=== PATIENT | male | born 1995 | race Caucasian/White ===

== ENCOUNTER 2020-05-24 17:09 | Emergency (ER) | payer OTHER ==
[2020-05-24 17:16] VITALS: BP 122/64; PULSE 80; RESP 18; TEMP 98.2
[2020-05-24] MEDS ORDERED: DIPH,PERTUS(ACELL)TETVAC-LF 0.5 ML VIAL IM ONE (17:30)
[2020-05-24] MEDS ORDERED: LIDOCAINE 1% INJ 10MG/ML (20 ML MDV) SQ ONE (17:30)
--- NOTE | 2020-05-24 18:03 | ED ---
Wound/Laceration HPI - General Chief Complaint: Wound/Laceration Stated Complaint: IHS-hand lac Time Seen by Provider: 05/24/20 17:23 Source: patient Mode of arrival: ambulatory Limitations: no limitations - History of Present Illness Initial Comments: 24 yo male presenting today for cc of right hand laceration. patient states that he was bending a evelyn when it accidentally rammed into his right hand causing laceration. Patient is unsure of his last tetanus. thought it might need suture and presented to the ER for evaluation patient denies loss of ROM of digits, numbness/tingling loss of sensation. Patient denies noting exposure of underlying structure or small particles in the wound. Patient has no additional complaints. Upon arrival patient appears well bleeding controlled. - Related Data Previous Rx's Medication Instructions Recorded Cephalexin [Keflex] 500 mg PO Q12HR 3 Days #6 cap 05/24/20 Allergies Allergy/AdvReac Type Severity Reaction Status Date / Time ibuprofen [From Motrin] Allergy Swelling Verified 05/24/20 17:13 Review of Systems ROS Statement: Those systems with pertinent positive or pertinent negative responses have been documented in the HPI. ROS Other: All systems not noted in ROS Statement are negative. Past Medical History Past Medical History: No Reported History History of Any Multi-Drug Resistant Organisms: None Reported Past Surgical History: No Surgical Hx Reported Past Psychological History: No Psychological Hx Reported Smoking Status: Never smoker Past Alcohol Use History: Occasional Past Drug Use History: None Reported General Exam - General Exam Comments Initial Comments: General: The patient is awake and alert, in no distress, and does not appear acutely ill. Eye: Pupils are equal, round and reactive to light, extra-ocular movements are intact. No nystagmus. There is normal conjunctiva bilaterally. No signs of icterus. Musculoskeletal: Normal ROM, no tenderness. Strength 5/5 at the MCP DIP and PIP joints of all five digits of the hands b/l. laceration deformity of right hand near right thumb 4 cm on the dorsal aspect . Sensation intact. [place] oulses equal bilaterally 2+. capillary refill < 3 seconds. Neurological: A&O x 3. CN II-XII intact grossly, There are no obvious motor or sensory deficits. Coordination appears grossly intact. Speech is normal. Skin: Skin is warm and dry and no rashes or lesions are noted. Psychiatric: Cooperative, appropriate mood & affect, normal judgment. Limitations: no limitations Course Vital Signs 05/24/20 17:13 Temperature 98.2 F Pulse Rate 80 Respiratory 18 Rate Blood Pressure 122/64 O2 Sat by Pulse 98 Oximetry Procedures - Laceration Laceration #1 Consent Obtained: verbal consent Indication: laceration Site: hand (right thumb) Size (cm): 4 Description: linear Depth: simple, single layer Anesthetic Used: lidocaine 1% Anesthesia Technique: local infiltration Amount (mls): 1 Pre-repair: wound explored, irrigated extensively, deep structures intact Type of Sutures: nylon Size of Sutures: 5-0 Number of Sutures: 5 Technique: simple, interrupted Patient Tolerated Procedure: well, no complications Medical Decision Making - Medical Decision Making 24-year-old male presented for chief complaint of right hand laceration. Laceration irrigated and cleansed with iodine. Edges approximate well there is no exposure of underlying structures. No indication of tendon injury or tendon exposure. Patient applied the procedure well. Patient was educated on risks of hand infections, return parameteres and importance of timely removal patient is agreeable to care plan and discharge at this time. Disposition Clinical Impression: Thumb laceration, Laceration of right thumb Disposition: HOME SELF-CARE Condition: Good Instructions (If sedation given, give patient instructions): Care For Your Stitches (ED), Laceration (ED) Additional Instructions: Please use medication as discussed. Please follow-up with family doctor in the next 2 days, return to ER for suture removal in 7-10 days Please return to emergency room if the symptoms increase or worsen or for any other concerns. Prescriptions: Cephalexin [Keflex] 500 mg PO Q12HR 3 Days #6 cap Is patient prescribed a controlled substance at d/c from ED?: No Referrals: None,Stated [Primary Care Provider] - 1-2 days Time of Disposition: 18:03
== END 2020-05-24 18:14 | disposition home or self-care (01) ==
LOC: EC 17:09
DX: S61.011A Laceration without foreign body of right thumb without damage to nail, initial encounter (principal); Z88.6 Allergy status to analgesic agent; W22.8XXA Striking against or struck by other objects, initial encounter
CPT/HCPCS: 90715; 99282; 90471; 12002; J2001

== ENCOUNTER → 2021-04-12 | Outpatient (CLI) | payer BC ==
[2021-04-12 16:34] LABS: T4, Free (Free Thyroxine) 1.2 ng/dL (0.80-1.80)
== END | disposition home or self-care (01) ==
LOC: LABWHC1 08:52
PROVIDERS: ATTEND Nurse Practitioner Acute Care
DX: E03.9 Hypothyroidism, unspecified (principal)
CPT/HCPCS: 36415; 84439; 84443; 84481

== ENCOUNTER → 2021-08-08 | Outpatient (CLI) | payer BC ==
[2021-08-08 23:07] LABS: Basophils # (A) 0 X 10*3/uL (0.00-0.10); Basophils % (A) 0 %; Eosinophils # (A) 0.18 X 10*3/uL (0.04-0.35); Eosinophils % (A) 2.2 %; HCT 44.6 % (39.6-50.0); HGB 14.9 g/dL (13.0-17.0); Lymphocytes # (A) 1.62 X 10*3/uL (0.90-5.00); Lymphocytes % (A) 19.5 %; MCH 28.4 pg (27.0-32.0); MCHC 33.4 g/dL (32.0-37.0); Mean Platelet Volume 10.3 fL (9.5-12.2); Monocytes # (A) 0.66 X 10*3/uL (0.20-1.00); Monocytes % (A) 7.9 %; Neutrophils # (A) 5.83 X 10*3/uL (1.80-7.70); Platelet Count 284 X 10*3/uL (140-440); RBC 5.25 X 10*6/uL (4.40-5.60); RDW 12.1 % (11.5-14.5); WBC 8.32 X 10*3/uL (4.50-10.00)
[2021-08-09 01:09] LABS: Erythrocyte Sedimentation Rate 4 mm/Hr (0-15)
[2021-08-09 01:24] LABS: Thyroid Peroxidase Antibodies 63.5 U/mL (0.0-60.0)
[2021-08-09 17:28] LABS: African American GFR (CKD) 96.8 (60.0-200.0); Albumin 5.1 g/dL (3.80-4.90); Albumin/Globulin Ratio 1.65 (1.60-3.17); Anion Gap 14.9 mmol/L (4.00-12.00); BUN/Creat Ratio 17.5 Ratio (12.00-20.00); Calcium 9.6 mg/dL (8.7-10.3); Carbon Dioxide 22.1 mmol/L (21.6-31.8); Globulin 3.1 g/dL (1.6-3.3); Non-African American GFR(CKD) 83.5 (60.0-200.0); Potassium 4.6 mmol/L (3.5-5.5); Total Bilirubin 0.5 mg/dL (0.3-1.2); Total Protein 8.2 g/dL (6.2-8.2)
== END | disposition home or self-care (01) ==
LOC: LABWHC1 15:08
PROVIDERS: ATTEND Allergy & Immunology
DX: D80.2 Selective deficiency of immunoglobulin A [IgA] (principal); K52.9 Noninfective gastroenteritis and colitis, unspecified
CPT/HCPCS: 36415; 80053; 85025; 85652; 86038; 86376; 86800

== ENCOUNTER → 2021-09-10 | Outpatient (CLI) | payer BC ==
--- NOTE | 2021-09-10 12:27 | US ---
EXAMINATION TYPE: US thyroid st tissue head/neck DATE OF EXAM: 09/10/2021 COMPARISON: NONE CLINICAL HISTORY: E06.3 THYROMEGALY,E04.9 HASHIMOTOS. GLAND SIZE: Right Lobe: 6.4x2.5x2.1 cm Overall Parenchyma: heterogenous Left Lobe: 5.6x2.0x2.1 cm Overall Parenchyma: heterogeneous Isthmus Thickness: 1.0 cm NODULES RIGHT: # of nodules measured on right: 1 1. 1.3 X 0.8 x 1.2 cm, lower mid, mixed cystic and solid, isoechoic nodule, which is wider than domenica l, with smooth margins, without echogenic foci. LEFT: # of nodules measured on left: 0 ISTHMUS: # of nodules measured in the isthmus: 0 Bilateral neck scanned, no evidence of lymphadenopathy. IMPRESSION: Complex cystic right thyroid nodule 2017 ACR TI-RADS LEVEL: TR-RADS 2 - Not Suspicious: No FNA *Highest TI-RADS level nodule reported
== END | disposition home or self-care (01) ==
LOC: RADUSWWP 07:51
PROVIDERS: ATTEND Allergy & Immunology
DX: R91.1 Solitary pulmonary nodule (principal); E04.9 Nontoxic goiter, unspecified
CPT/HCPCS: 76536

== ENCOUNTER 2021-11-11 11:02 | Emergency (ER) | payer BC ==
[2021-11-11 11:45] VITALS: RESP 18
[2021-11-11] MEDS ORDERED: ACETAMINOPHEN TAB 500 MG TAB PO STA (12:04)
[2021-11-11] MEDS ORDERED: BAMLANIVIMAB (EUA) 700 MG, ETESEVIMAB (EUA) 1,400 MG in SODIUM CHLORIDE 0.9% 50 ML IVPB ONE (13:00)
[2021-11-11] MEDS ORDERED: SODIUM CHLORIDE 0.9% 50 ML IVPB ONE (13:30)
--- NOTE | 2021-11-11 13:34 | ED ---
URI HPI - General Chief Complaint: Upper Respiratory Infection Stated Complaint: covid test/antibodies Time Seen by Provider: 11/11/21 11:04 Source: patient, RN notes reviewed Mode of arrival: ambulatory Limitations: no limitations - History of Present Illness Initial Comments: 25-year-old male presents emergency Department with chief complaint of covid 19. Patient states he tested positive at home states that symptoms last couple days including fever cough congestion body aches nausea. Patient states he has not taken any recent Tylenol he has ALLERGY to ibuprofen. Patient offers no other associated complaints. - Related Data Home Medications Medication Instructions Recorded Confirmed Acetaminophen Tab [Tylenol Tab] 1,000 mg PO Q6HR PRN 11/11/21 11/11/21 Cetirizine HCl [Zyrtec] 10 mg PO DAILY 11/11/21 11/11/21 EPINEPHrine (Auto Inject) [Epipen] 0.3 mg IM ONCE PRN 11/11/21 11/11/21 Allergies Allergy/AdvReac Type Severity Reaction Status Date / Time ibuprofen [From Motrin] Allergy Swelling Verified 11/11/21 11:45 Review of Systems ROS Statement: Those systems with pertinent positive or pertinent negative responses have been documented in the HPI. ROS Other: All systems not noted in ROS Statement are negative. Past Medical History Past Medical History: No Reported History Additional Past Medical History / Comment(s): hashimotos, IGA deficency History of Any Multi-Drug Resistant Organisms: None Reported Past Surgical History: No Surgical Hx Reported Past Psychological History: No Psychological Hx Reported Smoking Status: Never smoker Past Alcohol Use History: Occasional Past Drug Use History: None Reported General Exam Limitations: no limitations General appearance: alert, in no apparent distress Head exam: Present: atraumatic, normocephalic, normal inspection Eye exam: Present: normal appearance, PERRL, EOMI. Absent: scleral icterus, conjunctival injection, periorbital swelling ENT exam: Present: normal exam, normal oropharynx, mucous membranes moist Neck exam: Present: normal inspection, full ROM. Absent: tenderness, meningismus, lymphadenopathy Respiratory exam: Present: normal lung sounds bilaterally. Absent: respiratory distress, wheezes, rales, rhonchi, stridor Cardiovascular Exam: Present: regular rate, normal rhythm, normal heart sounds. Absent: systolic murmur, diastolic murmur, rubs, gallop, clicks Course Vital Signs 11/11/21 11:42 Temperature 100.9 F H Pulse Rate 91 Respiratory 18 Rate Blood Pressure 133/60 O2 Sat by Pulse 99 Oximetry Medical Decision Making - Medical Decision Making 25-year-old presented for monoclonal antibodies patient received and was discharged in stable condition. - Lab Data Lab Results 11/11/21 Range/Units 11:46 Coronavirus (PCR) Detected A (Not Detectd) Disposition Clinical Impression: COVID-19 Disposition: HOME SELF-CARE Condition: Stable Instructions (If sedation given, give patient instructions): Coronavirus Disease 2019 (COVID-19) Additional Instructions: Please return to the Emergency Department if symptoms worsen or any other concer ns. Is patient prescribed a controlled substance at d/c from ED?: No Referrals: Raul Aguilar MD [Primary Care Provider] - 1-2 days Time of Disposition: 13:34
[2021-11-11 13:38] VITALS: BP 133/74; PULSE 77; TEMP 99
== END 2021-11-11 14:47 | disposition home or self-care (01) ==
LOC: EC 11:02
DX: U07.1 COVID-19 (principal); Z88.6 Allergy status to analgesic agent
CPT/HCPCS: 87635; 99283; J3490

== ENCOUNTER → 2022-04-15 | Outpatient (CLI) | payer BC | END | disposition home or self-care (01) | LOC: LABWHC1 09:26 | PROVIDERS: ATTEND Obstetrics & Gynecology | DX: Z31.441 Encounter for testing of male partner of patient with recurrent pregnancy loss (principal) | CPT/HCPCS: 36415 ==

== ENCOUNTER → 2022-10-25 | Outpatient (CLI) | payer BC ==
--- NOTE | 2022-10-25 10:03 | US ---
EXAMINATION TYPE: US thyroid st tissue head/neck DATE OF EXAM: 10/25/2022 COMPARISON: NONE CLINICAL HISTORY: E06.3 AUTOIMMUNE THYROIDITIS. Carmen's GLAND SIZE: Right Lobe: 6.3 x 2.8 x 2.5 cm Overall Parenchyma: heterogenous Left Lobe: 6.2 x 2.6 x 2.1 cm Overall Parenchyma: heterogeneous Isthmus Thickness: 1.0 cm NODULES: Thyroid is diffusely heterogenous RIGHT: # of nodules measured on right: 1 1. 1.1 X 1.0 x 1.2 cm, lower , solid or almost completely solid, hyperechoic nodule with hypoechoic rim, which is wider than tall, with smooth margins, without echogenic foci. TR 3. Prior size: 1.3 x 0.8 x 1.2 cm LEFT: # of nodules measured on left: 0 ISTHMUS: # of nodules measured in the isthmus: 0 Bilateral neck scanned, normal appearing lymph nodes left neck IMPRESSION: Mildly suspicious nodule right lobe thyroid. Consider follow-up in one year. 2017 ACR TI-RADS LEVEL: TR-RADS 3 - Mildly Suspicious: Follow if > 1.5 cm, FNA if > 2.5 cm *Highest TI-RADS level nodule reported
[2022-10-25 14:37] LABS: Basophils # (A) 0.06 X 10*3/uL (0.00-0.10); Basophils % (A) 0.8 %; Eosinophils # (A) 0.27 X 10*3/uL (0.04-0.35); Eosinophils % (A) 3.8 %; HCT 44.5 % (39.6-50.0); HGB 15.1 g/dL (13.0-17.0); Immature Grans, Automated 0.4 %; Lymphocytes # (A) 1.33 X 10*3/uL (0.90-5.00); Lymphocytes % (A) 18.7 %; MCH 28.4 pg (27.0-32.0); MCHC 33.9 g/dL (32.0-37.0); MCV 83.8 fL (80.0-97.0); Mean Platelet Volume 10.4 fL (9.5-12.2); Monocytes # (A) 0.79 X 10*3/uL (0.20-1.00); Monocytes % (A) 11.1 %; NRBC Per 100 WBC 0 /100 WBCS (0.0-0.0); Neutrophils # (A) 4.63 X 10*3/uL (1.80-7.70); Neutrophils % (A) 65.2 %; Platelet Count 267 X 10*3/uL (140-440); RBC 5.31 X 10*6/uL (4.40-5.60); RDW 12.1 % (11.5-14.5); WBC 7.11 X 10*3/uL (4.50-10.00)
[2022-10-25 14:49] LABS: T4, Free (Free Thyroxine) 1.48 ng/dL (0.800-1.800)
== END | disposition home or self-care (01) ==
LOC: RADUSWWP 09:35
PROVIDERS: ATTEND Internal Medicine Geriatric Medicine
DX: E06.3 Autoimmune thyroiditis (principal)
CPT/HCPCS: 76536; 83036; 84439; 84443; 85025; 86376

== ENCOUNTER → 2023-09-12 | Outpatient (CLI) | payer BC ==
--- NOTE | 2023-09-12 14:22 | US ---
EXAMINATION TYPE: US thyroid st tissue head/neck DATE OF EXAM: 09/12/2023 COMPARISON: US CLINICAL INDICATION: Male, 27 years old with history of E06.3 AUTOIMMUNE THYROIDITIS; F/U GLAND SIZE: Right Lobe: 6.6 x 2.4 x 2.3 cm Overall Parenchyma: heterogenous Left Lobe: 6.3 x 2.1 x 2.0 cm Overall Parenchyma: heterogenous Isthmus Thickness: 1.1 cm NODULES RIGHT: # of nodules measured on right: 1 1. 1.1 X 1.0 x 1.1 cm, lower, solid or almost completely solid, hyperechoic nodule, which is wider than tall, with smooth margins, without echogenic foci. Prior size: 1.1 x 1.0 x 1.2 cm LEFT: # of nodules measured on left: 0 ISTHMUS: # of nodules measured in the isthmus: 0 Bilateral neck scanned, no evidence of lymphadenopathy. Stable nodule on right. IMPRESSION: TR3 nodule. Glandular enlargement and diffuse heterogeneity.
== END | disposition home or self-care (01) ==
LOC: RADUSWWP 13:25
PROVIDERS: ATTEND Internal Medicine Geriatric Medicine
DX: E06.3 Autoimmune thyroiditis (principal); E04.1 Nontoxic single thyroid nodule
CPT/HCPCS: 76536

== ENCOUNTER → 2024-09-17 | Outpatient (CLI) | payer BC ==
--- NOTE | 2024-09-17 09:56 | US ---
EXAMINATION TYPE: US thyroid st tissue head/neck DATE OF EXAM: 09/17/2024 COMPARISON: Ultrasound thyroid 09/12/2023, 10/25/2022, 09/10/2021 CLINICAL INDICATION: Male, 28 years old with history of E04.1 THYROID NODULE; f/u TECHNIQUE: Grayscale and color Doppler imaging of the thyroid gland. FINDINGS: GLAND SIZE: Right Lobe: 7.0x4.8x2.2 cm Overall Parenchyma: heterogeneous Left Lobe: 6.2x1.8x1.9 cm Overall Parenchyma: heterogeneous Isthmus Thickness: 1.0 cm NODULES RIGHT: # of nodules measured on right: 1 1. 1.0 X 0.9 x 1.1 cm, lower medial, solid or almost completely solid, hyperechoic nodule, which is wider than tall, with smooth margins, without echogenic foci. TR 3. Prior size: 1.1 x 1.0 x 1.1 cm LEFT: # of nodules measured on left: 0 ISTHMUS: # of nodules measured in the isthmus: 0 Bilateral neck scanned, no evidence of lymphadenopathy. IMPRESSION: Diffusely heterogenous enlarged thyroid gland redemonstrated with stable right thyroid lobe 1.1 cm TR 3 nodule. ACR TI-RADS LEVEL: TR-RADS 3 - Follow if > 1.5 cm, FNA if > 2.5 cm *Highest TI-RADS level nodule reported [facility], , 09/17/2024 9:53 AM
== END | disposition home or self-care (01) ==
LOC: RADUSWWP 08:49
PROVIDERS: ATTEND Internal Medicine Geriatric Medicine
DX: E04.1 Nontoxic single thyroid nodule (principal)
CPT/HCPCS: 76536

== ENCOUNTER 2024-09-29 22:50 | Emergency (ER) | payer BC ==
[2024-09-29 22:56] VITALS: RESP 18
[2024-09-29 23:44] LABS: Basophils % (A) 0 %; Eosinophils # (A) 0.2 k/uL (0-0.7); Eosinophils % (A) 2 %; HGB 13.3 gm/dL (13.0-17.5); Lymphocytes # (A) 1.6 k/uL (1.0-4.8); Lymphocytes % (A) 18 %; MCH 27.4 pg (25.0-35.0); MCHC 32.4 g/dL (31.0-37.0); MCV 84.5 fL (80.0-100.0); Mean Platelet Volume 7.7; Monocytes # (A) 0.5 k/uL (0-1.0); Monocytes % (A) 5 %; Neutrophils # (A) 6.5 k/uL (1.3-7.7); Neutrophils % (A) 73 %; Platelet Count 258 k/uL (150-450); RBC 4.86 m/uL (4.30-5.90); RDW 12.7 % (11.5-15.5); WBC 8.9 k/uL (3.8-10.6)
[2024-09-29] MEDS: SODIUM CHLORIDE 0.9% 1,000 ML IV STA (23:44)
[2024-09-29] MEDS: FAMOTIDINE 20 MG TAB PO STA (23:45)
[2024-09-29] MEDS: MAG HYDROX/AL HYDROX/SIMETH 30 ML, HYOSCYAMINE ELIXIR 10 ML, LIDOCAINE VISCOUS 2% 10 ML PO STA (23:46)
[2024-09-29] MEDS: ACETAMINOPHEN TAB 500 MG TAB PO STA (23:46)
[2024-09-29 23:52] LABS: ALT 24 U/L (4-49); AST 31 U/L (17-59); African American GFR (CKD) >90 (>60 ml/min/1.73 sqM); Albumin 4.8 g/dL (3.5-5.0); Alkaline Phosphatase 63 U/L (38-126); Amylase 55 U/L (30-110); Anion Gap 7 mmol/L; Blood Urea Nitrogen 28 mg/dL (9-20); Calcium 9.2 mg/dL (8.4-10.2); Carbon Dioxide 22 mmol/L (22-30); Chloride 108 mmol/L (98-107); Glucose 111 mg/dL (74-99); Lipase 69 U/L (23-300); Non-African American GFR(CKD) 87 (>60 ml/min/1.73 sqM); Potassium 3.9 mmol/L (3.5-5.1); Sodium 137 mmol/L (137-145); Total Bilirubin 0.5 mg/dL (0.2-1.3)
[2024-09-29 23:55] LABS: Appearance,Urine Clear (Clear); Bilirubin,Urine Negative (Negative); Blood,Urine Negative (Negative); Color,Urine Colorless; Glucose,Urine (UA) Negative (Negative); Ketones,Urine Negative (Negative); Leukocyte Esterase,Urine Negative (Negative); Nitrite,Urine Negative (Negative); Protein,Urine Negative (Negative); Specific Gravity,Urine 1.026 (1.001-1.035); Urobilinogen,Urine <2.0 mg/dL (<2.0)
[2024-09-29] MEDS: SUCRALFATE 1 GM TAB PO STA (23:58)
--- NOTE | 2024-09-30 00:07 | ED ---
Abdominal Pain HPI - General Chief Complaint: Abdominal Pain Stated Complaint: Left sided abd pain Time Seen by Provider: 09/29/24 23:03 Source: patient Mode of arrival: ambulatory Limitations: no limitations - History of Present Illness Initial Comments: Patient is a pleasant 20-year-old gentleman no significant past medical history presenting for left-sided abdominal pain. States was eating dinner tonight, he ate a protein pancake and cottage cheese when he had sharp left-sided abdominal pain. States it comes and goes. Does not radiate. No associated nausea, vomiting, chest pain, shortness of breath, black or bloody stools, diarrhea. Patient states he has 1 bowel movement every other day last problem was yesterday. States pain does not change with positions. States that has been comes and goes the spacing between the pain spasms is getting longer and longer. Each time the pain comes on it lasts for 7 to 10 seconds. No medications prior to arrival. No prior abdominal surgeries. Does not radiate to the back. No numbness or weakness in his extremities. - Related Data Home Medications Medication Instructions Recorded Confirmed Acetaminophen Tab [Tylenol Tab] 1,000 mg PO Q6HR PRN 11/11/21 11/11/21 Cetirizine HCl [Zyrtec] 10 mg PO DAILY 11/11/21 11/11/21 EPINEPHrine (Auto Inject) [Epipen] 0.3 mg IM ONCE PRN 11/11/21 11/11/21 Allergies Allergy/AdvReac Type Severity Reaction Status Date / Time ibuprofen [From Motrin] Allergy Swelling Verified 09/29/24 22:53 Review of Systems ROS Statement: Those systems with pertinent positive or pertinent negative responses have been documented in the HPI. ROS Other: All systems not noted in ROS Statement are negative. Past Medical History Past Medical History: No Reported History, Thyroid Disorder Additional Past Medical History / Comment(s): hashimotos, IGA deficency History of Any Multi-Drug Resistant Organisms: None Reported Past Surgical History: No Surgical Hx Reported Past Psychological History: No Psychological Hx Reported Smoking Status: Never smoker Past Alcohol Use History: Occasional Past Drug Use History: None Reported General Exam - General Exam Comments Initial Comments: PE: CONSTITUTIONAL: [no apparent distress, well appearing] SKIN: [warm, dry, no jaundice, hives or petechiae] EYES:[ pupils are equally round, extraocular movements intact without nystagmus, clear conjunctiva, non-icteric sclera] HENT: [normocephalic, atraumatic, moist mucus membranes, oropharynx clear without exudates] NECK: , [Full range of motion, normal appearance] PULMONARY: [clear to auscultation without wheezes, rhonchi, or rales, normal excursion, no accessory muscle use and no stridor] CARDIOVASCULAR:[ regular rate, rhythm, normal S1 and S2. No appreciated murmurs, rubs or gallops. Strong dorsalis pedis pulses with intact distal perfusion. No lower extremity edema] GASTROINTESTINAL: [soft, active bowel sounds throughout, non-tender, non-distend ed, no palpable masses, no rebound or guarding. No hepatosplenomegaly, no l CVA tenderness] GENITOURINARY: MUSCULOSKELETAL: [Extremities have no gross deformity, no edema, redness, or swelling. No calf swelling ] NEUROLOGIC: [_a/o x 3, GCS 15, normal mentation and speech. Moves all extremities x 4 without motor or sensory deficit] PSYCHIATRIC:[ _normal mood and affect, thought process is clear and linear] Limitations: no limitations Course Vital Signs 09/29/24 09/30/24 22:53 01:56 Temperature 97.8 F 97.9 F Pulse Rate 71 78 Respiratory 18 18 Rate Blood Pressure 128/76 122/76 O2 Sat by Pulse 99 97 Oximetry Medical Decision Making - Medical Decision Making Was pt. sent in by a medical professional or institution (, PA, [employer], urgent care, hospital, or half-way...) When possible be specific @ -[No] Did you speak to anyone other than the patient for history (EMS, parent, family, police, friend...)? What history was obtained from this source @ -[No] Did you review nursing and triage notes (agree or disagree)? Why? @ -[I reviewed and agree with nursing and triage notes] Were old charts reviewed (outside hosp., previous admission, EMS record, old EKG, old radiological studies, urgent care reports/EKG's, half-way records)? Report findings @ -[No old charts were reviewed] Differential Diagnosis (chest pain, altered mental status, abdominal pain women, abdominal pain men, vaginal bleeding, weakness, fever, dyspnea, syncope, hea dache, dizziness, GI bleed, back pain, seizure, CVA, palpatations, mental health, musculoskeletal)? @ -Differential abdominal pain men EKG interpreted by me (3pts min.). @ -[As above] X-rays interpreted by me (1pt min.). @ -[None done] CT interpreted by me (1pt min.). @ -[None done] U/S interpreted by me (1pt. min.). @ -[None done] What testing was considered but not performed or refused? (CT, X-rays, U/S, labs)? Why? @ -[None] What meds were considered but not given or refused? Why? @ -[None] Did you discuss the management of the patient with other professionals (professionals i.e. , PA, [employer], lab, RT, psych nurse, social media editor, sand slinger, teacher, special weapons and tactics officer, case liner)? Give summary @ -[No] Was smoking cessation discussed for >3mins.? @ -[No] Was critical care preformed (if so, how long)? @ -[No] Were there social determinants of health that impacted care today? How? (Homelessness, low income, unemployed, alcoholism, drug addiction, transportation, low edu. Level, literacy, decrease access to med. care, [facility], rehab)? @ -[No] Was there de-escalation of care discussed even if they declined (Discuss DNR or withdrawal of care, Hospice)? @ -[No] What co-morbidities impacted this encounter? (DM, HTN, Smoking, COPD, CAD, Cancer, CVA, ARF, Chemo, Hep., AIDS, mental health diagnosis, sleep apnea, morbid obesity)? @ -[None] Was patient admitted / discharged? Hospital course, mention meds given and route, prescriptions, significant lab abnormalities, going to OR and other per tinent info. @ -[hospital course] This is a pleasant 20-year-old gentleman presenting today for sharp left-sided abdominal pain. Comes and goes. On my assessment patient is well-appearing and in no acute distress. Vitals on arrival showed temp 97.8 degrees, pulse 71, respiratory 18, blood pressure 128/76 pulse ox 90%. Soft abdomen nontender, no masses, megaly, no CVA tenderness. Discussed with patient and urinalysis, CBC and lites, GI cocktail CT and pelvis without. Patient agreeable plan Labs and imaging reviewed. Grossly within normal limits. Abnormal values not concerning for acute pathology related to presenting complaint. Undiagnosed new problem with uncertain prognosis? @ -[No] Drug Therapy requiring intensive monitoring for toxicity (Heparin, Nitro, Insulin, Cardizem)? @ -[No] Were any procedures done? @ -[No] Diagnosis/symptom? @ -[default] Acute, or Chronic, or Acute on Chronic? @ -[default] Uncomplicated (without systemic symptoms) or Complicated (systemic symptoms)? @ -[default] Side effects of treatment? @ -[No] Exacerbation, Progression, or Severe Exacerbation? @ -[No] Poses a threat to life or bodily function? How? (Chest pain, USA, OR, pneumonia, PE, COPD, DKA, ARF, appy, cholecystitis, CVA, Diverticulitis, Homicidal, Suicidal, threat to staff... and all critical care pts) @ -[No] - Lab Data Result diagrams: 09/29/24 23:38 09/29/24 23:38 Lab Results 09/29/24 09/29/24 09/29/24 Range/Units 23:14 23:38 23:38 WBC 8.9 (3.8-10.6) k/uL RBC 4.86 (4.30-5.90) m/uL Hgb 13.3 (13.0-17.5) gm/dL Hct 41.0 (39.0-53.0) % MCV 84.5 (80.0-100.0) fL MCH 27.4 (25.0-35.0) pg MCHC 32.4 (31.0-37.0) g/dL RDW 12.7 (11.5-15.5) % Plt Count 258 (150-450) k/uL MPV 7.7 Neutrophils % 73 % Lymphocytes % 18 % Monocytes % 5 % Eosinophils % 2 % Basophils % 0 % Neutrophils # 6.5 (1.3-7.7) k/uL Lymphocytes # 1.6 (1.0-4.8) k/uL Monocytes # 0.5 (0-1.0) k/uL Eosinophils # 0.2 (0-0.7) k/uL Basophils # 0.0 (0-0.2) k/uL PT 11.2 (10.0-12.5) sec INR 1.0 (<1.2) APTT 26.1 (22.0-30.0) sec Sodium (137-145) mmol/L Potassium (3.5-5.1) mmol/L Chloride (98-107) mmol/L Carbon Dioxide (22-30) mmol/L Anion Gap mmol/L BUN (9-20) mg/dL Creatinine (0.66-1.25) mg/dL Est GFR (CKD-EPI)AfAm (>60 ml/min/1.73 sqM) Est GFR (CKD-EPI)NonAf (>60 ml/min/1.73 sqM) Glucose (74-99) mg/dL Calcium (8.4-10.2) mg/dL Total Bilirubin (0.2-1.3) mg/dL AST (17-59) U/L ALT (4-49) U/L Alkaline Phosphatase (38-126) U/L Total Protein (6.3-8.2) g/dL Albumin (3.5-5.0) g/dL Amylase (30-110) U/L Lipase (23-300) U/L Urine Color Colorless Urine Appearance Clear (Clear) Urine pH 6.0 (5.0-8.0) Ur Specific [place] 1.026 (1.001-1.035) Urine Protein Negative (Negative) Urine Glucose (UA) Negative (Negative) Urine Ketones Negative (Negative) Urine Blood Negative (Negative) Urine Nitrite Negative (Negative) Urine Bilirubin Negative (Negative) Urine Urobilinogen <2.0 (<2.0) mg/dL Ur Leukocyte Esterase Negative (Negative) 09/29/24 Range/Units 23:38 WBC (3.8-10.6) k/uL RBC (4.30-5.90) m/uL Hgb (13.0-17.5) gm/dL Hct (39.0-53.0) % MCV (80.0-100.0) fL MCH (25.0-35.0) pg MCHC (31.0-37.0) g/dL RDW (11.5-15.5) % Plt Count (150-450) k/uL MPV Neutrophils % % Lymphocytes % % Monocytes % % Eosinophils % % Basophils % % Neutrophils # (1.3-7.7) k/uL Lymphocytes # (1.0-4.8) k/uL Monocytes # (0-1.0) k/uL Eosinophils # (0-0.7) k/uL Basophils # (0-0.2) k/uL PT (10.0-12.5) sec INR (<1.2) APTT (22.0-30.0) sec Sodium 137 (137-145) mmol/L Potassium 3.9 (3.5-5.1) mmol/L Chloride 108 H (98-107) mmol/L Carbon Dioxide 22 (22-30) mmol/L Anion Gap 7 mmol/L BUN 28 H (9-20) mg/dL Creatinine 1.15 (0.66-1.25) mg/dL Est GFR (CKD-EPI)AfAm >90 (>60 ml/min/1.73 sqM) Est GFR (CKD-EPI)NonAf 87 (>60 ml/min/1.73 sqM) Glucose 111 H (74-99) mg/dL Calcium 9.2 (8.4-10.2) mg/dL Total Bilirubin 0.5 (0.2-1.3) mg/dL AST 31 (17-59) U/L ALT 24 (4-49) U/L Alkaline Phosphatase 63 (38-126) U/L Total Protein 8.0 (6.3-8.2) g/dL Albumin 4.8 (3.5-5.0) g/dL Amylase 55 (30-110) U/L Lipase 69 (23-300) U/L Urine Color Urine Appearance (Clear) Urine pH (5.0-8.0) Ur Specific [place] (1.001-1.035) Urine Protein (Negative) Urine Glucose (UA) (Negative) Urine Ketones (Negative) Urine Blood (Negative) Urine Nitrite (Negative) Urine Bilirubin (Negative) Urine Urobilinogen (<2.0) mg/dL Ur Leukocyte Esterase (Negative) Disposition Clinical Impression: Left sided abdominal pain Disposition: HOME SELF-CARE Condition: Good Instructions (If sedation given, give patient instructions): Abdominal Pain (ED) Additional Instructions: Every disease is a spectrum and a small chance still exists that a serious condition could develop, for this reason, please monitor yourself closely for new, changing or worsening symptoms, symptoms that persist beyond 48 hours, vomi ting, vomiting blood, blood in your stool, fever, inability to tolerate/keep down fluids or your medications, inability to follow up with outpatient providers as instructed and should you experience these symptoms or should you have any further concerns for your wellbeing please return to the ED or call 911 immediately. PLEASE call your primary care physician as soon as possible to arrange / discuss plan for followup appointment. Appointment in the next 1-3 days is strongly encouraged if possible. PLEASE let us know here before you leave if there is anything further we can do to be of any assistance. Take care and feel Better! Is patient prescribed a controlled substance at d/c from ED?: No Referrals: Raul Aguilar MD [Primary Care Provider] - 1-2 days
[2024-09-30 00:30] LABS: Partial Thromboplastin Time 26.1 sec (22.0-30.0); Prothrombin Time 11.2 sec (10.0-12.5)
--- NOTE | 2024-09-30 01:20 | CT ---
EXAM: CT Abdomen and Pelvis Without Intravenous Contrast CLINICAL HISTORY: ITS.REASON CT Reason: left sided abdominal pain, sharp TECHNIQUE: Axial computed tomography images of the abdomen and pelvis without intravenous contrast. CTDI is 14.3 mGy and DLP is 942.8 mGy-cm. This CT exam was performed using one or more of the following dose reduction techniques: automated exposure control, adjustment of the mA and/or kV according to patient size, and/or use of iterative reconstruction technique. COMPARISON: No relevant prior studies available. FINDINGS: Lung bases: Unremarkable. No mass. No consolidation. ABDOMEN: Liver: Unremarkable. Gallbladder and bile ducts: Unremarkable. No calcified stones. No ductal dilation. Pancreas: Unremarkable. No ductal dilation. Spleen: Unremarkable. No splenomegaly. Adrenals: Unremarkable. No mass. Kidneys and ureters: Unremarkable. No hydronephrosis, nephrolithiasis, or obstructive uropathy. Stomach and bowel: Unremarkable. No obstruction. No mucosal thickening. PELVIS: Appendix: No findings to suggest acute appendicitis. Bladder: Unremarkable. No stones. Reproductive: Unremarkable as visualized. ABDOMEN and PELVIS: Intraperitoneal space: Unremarkable. No free air. No significant fluid collection. Bones/joints: No acute fracture. No dislocation. Soft tissues: Unremarkable. Vasculature: Unremarkable. No abdominal aortic aneurysm. Lymph nodes: Unremarkable. No enlarged lymph nodes. IMPRESSION: No hydronephrosis, nephrolithiasis, or obstructive uropathy.
[2024-09-30 01:56] VITALS: BP 122/76; PULSE 78; TEMP 97.9
[2024-09-30] MEDS: DICYCLOMINE 20 MG TAB PO STA (02:25)
== END 2024-09-30 02:29 | disposition home or self-care (01) ==
LOC: EC 22:50
DX: R10.9 Unspecified abdominal pain (principal); Z88.6 Allergy status to analgesic agent
CPT/HCPCS: 36415; 74176; 80053; 81003; 82150; 83690; 85025; 85610; 85730; 96360; 99284